=== PATIENT | male | born 1985 | race Caucasian/White ===

== ENCOUNTER 2019-02-19 20:55 | Emergency (ER) | payer SELFPAY ==
[2019-02-19] MEDS: SILVER SULFADIAZINE 1% 25 GM CR TOP (22:31)
== END 2019-02-19 22:45 | disposition home or self-care (01) ==
LOC: FTE 20:55
DX: T21.21XA Burn of second degree of chest wall, initial encounter (principal); X10.2XXA Contact with fats and cooking oils, initial encounter; Y92.9 Unspecified place or not applicable
CPT/HCPCS: 16020; 99283-25